=== PATIENT | female | born 1965 | race Caucasian/White ===

== ENCOUNTER 2017-07-08 11:49 | Day surgery (SDC) | payer OTHER ==
[~2017-07-08] VITALS: Ht 165.1 cm; Wt 88.0 kg
[2017-07-08] MEDS ORDERED: IBUPROPHEN (13:27)
[2017-07-08] MEDS ORDERED: OMEPRAZOLE (13:27)
[2017-07-08 13:53] VITALS: BP 104/57; PULSE 57; RESP 15
[2017-07-08 14:10] VITALS: BP 104/57; PULSE 57; RESP 15
[2017-07-08] MEDS ORDERED: PROPOFOL 40 ML ONE (14:17)
[2017-07-08] MEDS ORDERED: LIDOCAINE 100 MG SYRINGE ONE (14:17)
--- NOTE | 2017-07-08 14:31 | OPPN ---
Date/Time of Note Date/Time of Note DATE: 07/08/17 TIME: 14:30 Operative Report Preoperative Diagnosis Chronic heartburn Noncardiac chest pain Abdominal pain Postoperative Diagnosis Hiatal hernia and gastroesophageal reflux disease Gastritis Operation/Procedure Performed Esophagogastroduodenoscopy and biopsy Surgeon see signature line certified registered dental assistant None Anesthesia: MAC Estimated blood loss: none Transfusion Required none Specimen Gastric mucosal biopsy Grafts/Implants none Complications none AMERICA XIE MD Jul 08, 2017 14:31
[2017-07-08 15:15] VITALS: BP 103/56; PULSE 54; RESP 13
--- NOTE | 2017-07-08 19:46 | GILP ---
DATE OF PROCEDURE: NAME OF PROCEDURE: Esophagogastroduodenoscopy and biopsy. SURGEON: America Xie MD PREOPERATIVE DIAGNOSES: 1. Abdominal pain. 2. Chronic heartburn. 3. Noncardiac chest pain. POSTOPERATIVE DIAGNOSES: 1. Hiatal hernia. 2. Gastroesophageal reflux disease. 3. Gastritis with erosions. 4. Gastric mucosal biopsies were taken for Helicobacter pylori test. INDICATION FOR THE PROCEDURE: Ms. Jannet Antony is a 52-year-old female patient who had upper a bdominal pain and chronic heartburn, not responding to therapy. She also had noncardiac chest pain. The patient was scheduled for endoscopic examination for further evaluation. The procedure and possible complications were well explained to the patient. She understood and con sented to the procedure. DESCRIPTION OF PROCEDURE: Under the influence of anesthesia, the gastroscope was carefully introduc ed into the esophagus. Under direct vision, it was advanced to the stomach and through the pylorus into the duodenal bulb and descending duodenum. FINDINGS: ESOPHAGUS: The patient had a hiatal hernia and gastroesophageal reflux disease. There was no stric ture or erosions. STOMACH: She had gastritis with erosions. Gastric mucosal biopsies were taken for H. pylori test. DUODENUM: Normal. She tolerated the procedure very well and there was no complication from the procedure. At the end of the procedure, she was awake with stable vital signs, and she was discharged home to the care of her family. IMPRESSION: Please see postoperative diagnoses. PLAN: 1. Continue omeprazole. 2. Add Zantac 300 mg p.o. at bedtime. 3. Await H. pylori test report. Dictated By: AMERICA DE LA CRUZ/OBDULIA Conf#: [id number] DID#: [id number] CC: AMERICA XIE MD;*EndCC*
--- NOTE | 2017-07-09 13:01 | CONS ---
DATE OF ADMISSION: 07/08/2017 DATE OF CONSULTATION: PATIENT NAME: DARRIAN OAKES PREOPERATIVE GASTROENTEROLOGY CONSULTATION I thank you very much for this kind referral. HISTORY OF PRESENT ILLNESS: Ms. Darrian Oakes is a 52-year-old female patient who has been ref erred to me for further evaluation of upper abdominal pain and chronic heartburn not responding to t herapy with omeprazole. The patient had upper abdominal pain and chest pain, and the patient went t o the emergency room. The cardiology workup was negative. The patient had abdominal ultrasound and CT scan done, and they were negative. The patient was diagnosed to have noncardiac chest pain, and she has been taking omeprazole. No past history of peptic ulcer disease. Not on nonsteroidal anti -inflammatory agents. Appetite is good and no weight loss. No gallstones or liver disease. The pa tient complains of change in the bowel habit with constipation. No past history of colon neoplasm. The patient never had screening colonoscopy. Not hypertensive or diabetic. No heart disease or silvestre ng problem. No kidney disease. Nonsmoker, no alcohol abuse. No family history of gastrointestinal tract neoplasm. ALLERGIES: NO DRUG ALLERGIES. MEDICATIONS: Omeprazole. PHYSICAL EXAMINATION: GENERAL: She is 5 feet 5 inches tall, and she weighs 198 pounds. HEART: Normal heart sounds. LUNGS: Clear. ABDOMEN: Soft. No masses. Normal bowel sounds. NEUROLOGIC: Normal neurological exam. IMPRESSION: 1. Upper abdominal pain and chronic heartburn not completely responding to therapy with omeprazole. 2. Noncardiac chest pain. 3. The patient had abdominal ultrasound and CT scan done, and according to her, they were normal. 4. Change in the bowel habit with constipation. 5. The patient never had screening colonoscopy. PLAN: 1. Continue omeprazole. 2. Endoscopic examination to rule out peptic ulcer disease and erosive esophagitis. 3. Because of the obesity with a short thick neck, she needs monitored anesthesia care. 4. Elective colonoscopy at a later date with anesthesia. The procedures and possible complications were well explained to the patient. The patient understan ds and consents to the procedures. I thank you once again. With warmest personal regards. Dictated By: AMERICA DE LA CRUZ/OBDULIA Conf#: [id number] DID#: [id number]
== END 2017-07-08 15:53 | disposition home or self-care (01) ==
LOC: GIL 11:49
PROVIDERS: ATTEND Internal Medicine Gastroenterology
DX: K44.9 Diaphragmatic hernia without obstruction or gangrene (principal); K21.9 Gastro-esophageal reflux disease without esophagitis; K29.70 Gastritis, unspecified, without bleeding
CPT/HCPCS: 87081; J2001

== ENCOUNTER 2019-04-01 07:23 | Day surgery (SDC) | payer OTHER ==
[~2019-04-01] VITALS: Ht 165.1 cm; Wt 91.9 kg
[~2019-04-01 07:23] MED LIST: IBUPROPHEN; OMEPRAZOLE; TYLENOL
[2019-04-01 08:13] VITALS: Ht 165.1 cm; Wt 91.9 kg
[2019-04-01 08:44] VITALS: BP 96/55; PULSE 62; RESP 16
[2019-04-01] MEDS ORDERED: PROPOFOL 20 ML ONE (08:52)
[2019-04-01 09:49] VITALS: BP 108/56; PULSE 62; RESP 20
== END 2019-04-01 14:26 | disposition home or self-care (01) ==
LOC: GIL 07:23
PROVIDERS: ATTEND Internal Medicine Gastroenterology
DX: Z12.11 Encounter for screening for malignant neoplasm of colon (principal); K64.8 Other hemorrhoids; D12.3 Benign neoplasm of transverse colon
CPT/HCPCS: 88305